=== PATIENT | male | born 1980 | race Caucasian/White ===

== ENCOUNTER 2017-06-14 23:52 | Inpatient (IN) | payer MEDICAID ==
[~2017-06-14] VITALS: Ht 182.9 cm; Wt 87.5 kg
[2017-06-14 23:56] VITALS: BP_SYST 151
[2017-06-15 00:32] LABS: HEMATOCRIT 44.2 % (36-54); MEAN CORPUSCULAR HEMOGLOBIN 32 pg (27-31); MEAN CORPUSCULAR HGB CONC 34 % (32-36); MEAN CORPUSCULAR VOLUME 93 fL (79.0-98.0); PLATELET COUNT (AUTO) 197 K/uL (130-430); RED BLOOD CELL COUNT(AUTO) 4.75 MIL/uL (4.2-6.2); RED CELL DISTRIBUTION WIDTH 12.5 % (9.0-15.0); WHITE BLOOD COUNT (AUTO) 8.7 K/uL (4.8-10.8)
[2017-06-15 00:35] LABS: CALCIUM 8.1 mg/dL (8.4-11.0); CREATININE 1.05 mg/dL (0.55-1.30); POTASSIUM 4.3 mmol/L (3.5-5.1)
[2017-06-15 00:39] LABS: ALBUMIN 4.1 g/dL (3.4-4.8); TOTAL BILIRUBIN 0.4 mg/dL (0.0-1.0)
[2017-06-15 00:50] LABS: BILIRUBIN,URINE NEGATIVE (NEGATIVE); BLOOD, URINE NEGATIVE (NEGATIVE); CLARITY/URINE SLIGHTLY HAZY (CLEAR); COLOR,URINE YELLOW (YELLOW); GLUCOSE,URINE NEGATIVE (NEGATIVE); KETONES,URINE NEGATIVE (NEGATIVE); LEUKOCYTE ESTERASE ,URINE NEGATIVE (NEGATIVE); NITRITE, URINE NEGATIVE (NEGATIVE); PH,URINE 7.5 (5.0-8.0); PROTEIN URINE NEGATIVE (NEGATIVE)
[2017-06-15 00:53] LABS: BACTERIA,URINE MODERATE /HPF (None Seen); MUCUS,URINE None Seen /LPF (None Seen); RBC,URINE 0-3 /HPF (0-3); URINE AMORPHOUS PHOSPHATES 1+ /HPF (None Seen)
[2017-06-15 01:01] LABS: BAND % (MANUAL) 8 % (0-6); BASOPHILS % (MANUAL) 0 % (0-2); EOSINOPHILS % (MANUAL) 3 % (0-7); LYMPHOCYTES % (MANUAL) 19 % (20-46); MONOCYTES % (MANUAL) 7 % (0-11)
[2017-06-15] MEDS ORDERED: AMPICILLIN SODIUM/SULBACTAM NA 3 GM VIAL IM ONE (01:30)
[2017-06-15] MEDS ORDERED: HYDROmorphone 1 MG INJ. 1 MG/ML AMPUL IVP ONE (01:30)
[2017-06-15] MEDS ORDERED: ONDANSETRON HCL 4 MG/2 ML VIAL IVP ONE (01:30)
[2017-06-15] MEDS ORDERED: NACL 0.9% 1,000 ML IV ONE (01:30)
[2017-06-15] MEDS ORDERED: ZOLPIDEM TARTRATE 5 MG TABLET PO PRN (01:45)
[2017-06-15] MEDS ORDERED: ONDANSETRON HCL 4 MG/2 ML VIAL IVP PRN ×3 (01:45→15:15)
[2017-06-15] MEDS ORDERED: POTASSIUM CHLORIDE 20 MEQ TAB.PRT.SR PO PRN (01:45)
[2017-06-15] MEDS ORDERED: HYDROcodone/ACETAMIN 10-325 MG TAB PO PRN (01:45)
[2017-06-15] MEDS ORDERED: BISACODYL 10 MG/SUPPOSITORY RC PRN (01:45)
[2017-06-15] MEDS ORDERED: AMPICILLIN SODIUM/SULBACTAM NA 3 GM VIAL ONE (01:45)
[2017-06-15] MEDS ORDERED: LORazepam 2 MG/ML VIAL IVP PRN (01:45)
[2017-06-15] MEDS ORDERED: AMPICILLIN SODIUM/SULBACTAM NA 3 GM in NS 100 ML IV ONE (01:45)
[2017-06-15] MEDS ORDERED: ACETAMINOPHEN 325 MG TABLET PO PRN (01:45)
[2017-06-15 02:03] VITALS: BP_SYST 141
[2017-06-15] MEDS: NACL 0.9% 1,000 ML IV SCH ×3 (02:31→21:40)
[2017-06-15 04:33] VITALS: BP_SYST 141
[2017-06-15] MEDS ORDERED: PIPERACILLIN/TAZOBACTAM 3.375 GM/VIAL (ZOSYN) IV ONE (04:54)
[2017-06-15] MEDS: MORPHINE 2 MG/ML INJ. SYRINGE IVP PRN ×4 (04:59→23:37)
[2017-06-15] MEDS: PIPERACILLIN/TAZO 3.375 GM in NS 50 ML IV SCH ×4 (05:19→23:35)
[2017-06-15 06:25] LABS: FREE T4 (FREE THYROXINE) 0.8 ng/dL (0.6-1.6); PHOSPHORUS 5.4 mg/dL (2.7-4.5); THYROID STIMULATING HORMONE 3.33 uIu/mL (0.34-4.82)
[2017-06-15 08:00] VITALS: BP_SYST 105
[2017-06-15] MEDS: DOCUSATE SODIUM 100 MG CAPSULE PO SCH ×2 (08:26→21:00)
[2017-06-15 13:04] VITALS: BP_SYST 109
[2017-06-15] MEDS ORDERED: METOCLOPRAMIDE HCL 10 MG/2 ML VIAL IVP ONE (13:57)
[2017-06-15] MEDS ORDERED: PROPOFOL 200MG/ 20ML VIAL (DIPRIVAN) IV ONE (13:57)
[2017-06-15] MEDS ORDERED: LR 1,000 ML IV.SOLN IV ONE (13:57)
[2017-06-15] MEDS ORDERED: SEVOFLURANE 15 MIN GAS INH ONE (13:57)
[2017-06-15] MEDS ORDERED: BUPIVACAINE /EPINEPHRINE/PF 0.25% 30 ML VIAL INJ ONE (13:57)
[2017-06-15] MEDS ORDERED: NS 1000 ML BAG IV ONE (13:57)
[2017-06-15] MEDS ORDERED: KETOROLAC TROMETHAMINE 30 MG VIAL IVP ONE (13:57)
[2017-06-15] MEDS ORDERED: SUCCINYLCHOLINE CHLORIDE 20 MG/ML(QUELICIN) IVP ONE (13:57)
[2017-06-15] MEDS ORDERED: NS IRRIG SOLN 1000 ML IR ONE (13:57)
[2017-06-15] MEDS ORDERED: fentaNYL CITRATE/PF 100 MCG/2 ML AMP IVP ONE (13:57)
[2017-06-15] MEDS ORDERED: LR 1,000 ML IV ONE (15:10)
[2017-06-15] MEDS ORDERED: ePHEDrine sulfate 50 MG/ML VIAL IVP PRN (15:15)
[2017-06-15] MEDS ORDERED: NALOXONE HCL 0.4 MG/ML AMP (NARCAN) IVP PRN (15:15)
[2017-06-15] MEDS ORDERED: fentaNYL CITRATE/PF 100 MCG/2 ML AMP IVP PRN (15:15)
[2017-06-15] MEDS ORDERED: NALBUPHINE HCL 10 MG/ML AMP IVP PRN (15:15)
[2017-06-15] MEDS ORDERED: DIPHENHYDRAMINE INJ 50 MG/ML VIAL IVP PRN (15:15)
[2017-06-15] MEDS ORDERED: fentaNYL CITRATE/PF 100 MCG/2 ML AMP ONE (16:11)
[2017-06-15 16:56] VITALS: BP_SYST 114
[2017-06-15 20:00] VITALS: BP_SYST 124
[2017-06-15] MEDS: CALCIUM CARBONATE/VITAMIN D3 1 TAB TABLET PO SCH (21:00)
[2017-06-16] VITALS (8 sets, daily range): BP systolic 112–127
[2017-06-16] MEDS: NACL 0.9% 1,000 ML IV SCH ×3 (03:31→18:08)
[2017-06-16 06:07] LABS: HEMOGLOBIN A1C 5.2 % (4.8-5.6)
[2017-06-16] MEDS: PIPERACILLIN/TAZO 3.375 GM in NS 50 ML IV SCH ×3 (06:07→18:05)
[2017-06-16 06:26] LABS: BASOPHILS % (AUTO) 0.1 % (0.0-2.0); EOSINOPHILS % (AUTO) 0.4 % (0.0-4.0); HEMATOCRIT 36.6 % (36-54); HEMOGLOBIN 12.4 g/dL (14.0-18.0); LYMPHOCYTES # (AUTO) 0.8 K/uL (1.0-5.5); LYMPHOCYTES % (AUTO) 10.7 % (20.5-51.5); MEAN CORPUSCULAR HEMOGLOBIN 32 pg (27-31); MEAN CORPUSCULAR HGB CONC 34 % (32-36); MEAN CORPUSCULAR VOLUME 93 fL (79.0-98.0); MONOCYTES # (AUTO) 0.5 K/uL (0.0-1.0); MONOCYTES % (AUTO) 6.3 % (1.7-9.3); NEUTROPHILS # (AUTO) 6.3 K/uL (1.8-7.7); NEUTROPHILS % (AUTO) 82.5 % (40.0-70.0); PLATELET COUNT (AUTO) 152 K/uL (130-430); RED BLOOD CELL COUNT(AUTO) 3.93 MIL/uL (4.2-6.2); RED CELL DISTRIBUTION WIDTH 12.6 % (9.0-15.0); WHITE BLOOD COUNT (AUTO) 7.6 K/uL (4.8-10.8)
[2017-06-16 06:33] LABS: CALCIUM 7.6 mg/dL (8.4-11.0); CREATININE 1.25 mg/dL (0.55-1.30)
[2017-06-16 08:06] LABS: T4 (THYROXINE) 6.7 ug/dL (4.5-12.0)
[2017-06-16] MEDS: MORPHINE 2 MG/ML INJ. SYRINGE IVP PRN ×3 (08:09→17:00)
[2017-06-16] MEDS: CALCIUM CARBONATE/VITAMIN D3 1 TAB TABLET PO SCH ×2 (08:33→22:05)
[2017-06-16] MEDS: MULTIVITAMINS TAB 1 TABLET PO SCH (08:33)
[2017-06-16] MEDS: DOCUSATE SODIUM 100 MG CAPSULE PO SCH ×2 (08:33→22:05)
[2017-06-16] MEDS: SIMETHICONE 80 MG TAB.CHEW PO PRN (22:05)
[2017-06-17] VITALS: BP_SYST 112
[2017-06-17] MEDS: PIPERACILLIN/TAZO 3.375 GM in NS 50 ML IV SCH ×2 (00:03→06:39)
[2017-06-17] MEDS: MORPHINE 2 MG/ML INJ. SYRINGE IVP PRN ×2 (00:03→08:11)
[2017-06-17 03:30] VITALS: BP_SYST 113
[2017-06-17] MEDS: NACL 0.9% 1,000 ML IV SCH ×2 (06:40→06:54)
[2017-06-17 06:55] LABS: BASOPHILS % (AUTO) 0.1 % (0.0-2.0); EOSINOPHILS # (AUTO) 0.1 K/uL (0.0-0.4); EOSINOPHILS % (AUTO) 2.1 % (0.0-4.0); HEMATOCRIT 36.9 % (36-54); HEMOGLOBIN 12.2 g/dL (14.0-18.0); LYMPHOCYTES # (AUTO) 1.1 K/uL (1.0-5.5); LYMPHOCYTES % (AUTO) 18.2 % (20.5-51.5); MEAN CORPUSCULAR HEMOGLOBIN 31 pg (27-31); MEAN CORPUSCULAR HGB CONC 33 % (32-36); MEAN CORPUSCULAR VOLUME 94 fL (79.0-98.0); MONOCYTES # (AUTO) 0.5 K/uL (0.0-1.0); MONOCYTES % (AUTO) 8.6 % (1.7-9.3); NEUTROPHILS # (AUTO) 4.6 K/uL (1.8-7.7); PLATELET COUNT (AUTO) 153 K/uL (130-430); RED BLOOD CELL COUNT(AUTO) 3.92 MIL/uL (4.2-6.2); RED CELL DISTRIBUTION WIDTH 12.7 % (9.0-15.0); WHITE BLOOD COUNT (AUTO) 6.3 K/uL (4.8-10.8)
[2017-06-17] MEDS: SIMETHICONE 80 MG TAB.CHEW PO PRN (08:00)
[2017-06-17] MEDS: MULTIVITAMINS TAB 1 TABLET PO SCH (08:08)
[2017-06-17] MEDS: CALCIUM CARBONATE/VITAMIN D3 1 TAB TABLET PO SCH (08:08)
[2017-06-17] MEDS: DOCUSATE SODIUM 100 MG CAPSULE PO SCH (08:08)
[2017-06-17 08:18] VITALS: BP_SYST 123
[2017-06-17] MEDS ORDERED: LEVO500T20 PO (08:36)
[2017-06-17] MEDS ORDERED: METR500T PO (08:36)
[2017-06-17 10:58] VITALS: BP_SYST 123
== END 2017-06-17 11:40 | disposition home or self-care (01) | DRG 223 ==
LOC: SED 23:52 → STU 06-15 01:38 → SMU 06-15 01:48
PROVIDERS: ADMIT Family Medicine; ATTEND Family Medicine
PROC: 0DJD4ZZ Inspection of Lower Intestinal Tract, Percutaneous Endoscopic Approach (ICD-10-PCS; 2017-06-15)
PROC: 0DTJ0ZZ Resection of Appendix, Open Approach (ICD-10-PCS; principal; 2017-06-15 14:30)
DX: K35.80 Unspecified acute appendicitis (principal); E83.51 Hypocalcemia; K21.9 Gastro-esophageal reflux disease without esophagitis; F17.210 Nicotine dependence, cigarettes, uncomplicated; Z53.31 Laparoscopic surgical procedure converted to open procedure
CPT/HCPCS: 36415; 71010; 80048; 80053; 80061; 81000-TC; 82150-TC; 83036; 83690-TC; 83735-TC; 83880; 84100-TC; 84436; 84439; 84443-TC; 84479; 85007; 85025; 85027; 87070; 87070-TC; 87075-TC; 87081; 87086; 87186-TC; 88304; 94010; 96365; 96375; 99285; C1727; J0295; J0330; J1170; J1885; J2270; J2405; J2543; J2704; J2765; J3010; J3490; J7030; J7060; J7120

== ENCOUNTER 2018-03-14 12:50 | Emergency (ER) | payer MEDICAID ==
[~2018-03-14] VITALS: Ht 182.9 cm; Wt 81.6 kg
[~2018-03-14 12:50] MED LIST: LEVO500T20 PO; METR500T PO
[2018-03-14 12:57] VITALS: BP_SYST 131
--- NOTE | 2018-03-14 13:00 | NUR ---
Placed in room 3. To gown for exam. Side rails up.
[2018-03-14] MEDS ORDERED: LIDOCAINE 2%, 20 ML MDV INJ ONE (13:15)
[2018-03-14] MEDS ORDERED: CEPHALEXIN 500 MG CAPSULE PO ONE (13:15)
[2018-03-14] MEDS ORDERED: SULFAMETHOXAZOLE/TRIMETHOPR DS 1 TABLET PO ONE (13:15)
[2018-03-14] MEDS ORDERED: DIPH-TET-PERTUS Vaccine 0.5 ML VIAL (ADACEL) I.M. ONE (13:15)
[2018-03-14] MEDS ORDERED: IBUPROFEN 800 MG TABLET PO ONE (13:15)
--- NOTE | 2018-03-14 13:20 | NUR ---
Pt presents to ER to have wound on R side of face checked. Wound on pt's face is swollen and small amound of pus leaking from center. Pt reports pain level 4/10 and states wound developed 2-3 days ago. Pt in no acute distress, speaking full sentences, AOX4, ambulatory.
--- NOTE | 2018-03-14 13:25 | NUR ---
Alexa Rivero [employer] PROFESSOR at bedside examining pt.
--- NOTE | 2018-03-14 13:55 | NUR ---
Alexa Rivero [employer] OPERATOR at bedside performing I&D on pt's wound to R side of face. Pt tolerating well; will continue to monitor.
--- NOTE | 2018-03-14 14:07 | NUR ---
Pt medicated as ordered by Alexa Rivero NP, pt tolerated well; will continue to monitor.
[2018-03-14 14:40] VITALS: BP_SYST 131
--- NOTE | 2018-03-14 14:40 | NUR ---
Patient given written and verbal discharge instructions and verbalizes understanding. ER MD discussed with patient the results and treatment provided. Patient in stable condition. ID arm band removed. Rx of Keflex, Motrin, Mupirocin, and Bactrim given. Patient educated on pain management and to follow up with PMD. Pain Scale 0/10. Opportunity for questions provided and answered. Medication side effect fact sheet provided.
== END 2018-03-14 14:40 | disposition home or self-care (01) ==
LOC: SED 12:50
DX: L02.01 Cutaneous abscess of face (principal); R03.0 Elevated blood-pressure reading, without diagnosis of hypertension; F17.210 Nicotine dependence, cigarettes, uncomplicated; Z76.1 Encounter for health supervision and care of foundling
CPT/HCPCS: 10060; 99284; J2001; 90715

== ENCOUNTER 2018-03-17 09:45 | Emergency (ER) | payer MEDICAID ==
[~2018-03-17] VITALS: Ht 182.9 cm; Wt 81.6 kg
[2018-03-17 09:45] VITALS: BP_SYST 128
[2018-03-17 10:05] VITALS: BP_SYST 128
== END 2018-03-17 10:05 | disposition home or self-care (01) ==
LOC: SED 09:45
DX: Z48.00 Encounter for change or removal of nonsurgical wound dressing (principal)
CPT/HCPCS: 99281

== ENCOUNTER 2018-08-06 20:52 | Emergency (ER) | payer MEDICAID ==
[~2018-08-06] VITALS: Ht 182.9 cm; Wt 79.4 kg
[2018-08-06 21:20] VITALS: BP_SYST 135
== END 2018-08-06 21:35 | disposition left against medical advice (07) ==
LOC: SED 20:52
DX: R20.2 Paresthesia of skin (principal); Z53.21 Procedure and treatment not carried out due to patient leaving prior to being seen by health care provider

== ENCOUNTER 2018-09-30 19:15 | Emergency (ER) | payer MEDICAID ==
[~2018-09-30] VITALS: Ht 182.9 cm; Wt 77.1 kg
[2018-09-30 19:15] VITALS: BP_SYST 129
[2018-09-30 19:20] VITALS: BP_SYST 129
== END 2018-09-30 19:22 ==
LOC: SED 19:15
DX: Z02.89 Encounter for other administrative examinations (principal); R03.0 Elevated blood-pressure reading, without diagnosis of hypertension
CPT/HCPCS: 99283

== ENCOUNTER 2020-01-12 22:33 | Emergency (ER) | payer MEDICAID ==
[~2020-01-12] VITALS: Ht 182.9 cm; Wt 72.6 kg
[2020-01-12 22:35] VITALS: BP_SYST 122
--- NOTE | 2020-01-12 22:35 | NUR ---
Patient to ER bed 4 to gown for evaluation. Side rails up. ASSUMED CARE OF PT.
--- NOTE | 2020-01-12 22:35 | NUR ---
PT AAO AND AMBULATORY C/O SCROTUM PAIN THAT STARTED YESTERDAY AND BECAME WORSE TODAY. PT REPORTS SWELLING AND DIFFICULTY URINATING D/T PAIN.
[2020-01-12 23:18] LABS: BILIRUBIN,URINE 1+ (NEGATIVE); BLOOD, URINE 1+ (NEGATIVE); CLARITY/URINE CLEAR (CLEAR); COLOR,URINE YELLOW (YELLOW); GLUCOSE,URINE NEGATIVE (NEGATIVE); KETONES,URINE NEGATIVE (NEGATIVE); LEUKOCYTE ESTERASE ,URINE 1+ (NEGATIVE); NITRITE, URINE NEGATIVE (NEGATIVE); PROTEIN URINE 2+ (NEGATIVE)
--- NOTE | 2020-01-12 23:18 | NUR ---
ER Dr. HURST at bedside examining patient.
[2020-01-12 23:20] LABS: BACTERIA,URINE MODERATE /HPF (None Seen); WBC,URINE >100 /HPF (0-3)
[2020-01-12] MEDS ORDERED: KETOROLAC TROMETHAMINE 30 MG VIAL IM ONE (23:30)
[2020-01-12] MEDS ORDERED: AZITHROMYCIN 250 MG TABLET PO ONE (23:30)
[2020-01-12] MEDS ORDERED: HYDROcodone/ACETAMIN 5-325 MG TAB (NORCO/ VICODIN) PO ONE (23:30)
[2020-01-12] MEDS ORDERED: cefTRIAXone 250 MG in LIDOCAINE 1%, 20 ML MDV 0.9 ML IM ONE (23:30)
[2020-01-12] MEDS ORDERED: ONDANSETRON 4 MG ODT TAB PO ONE (23:30)
[2020-01-13 01:05] VITALS: BP_SYST 119
--- NOTE | 2020-01-13 01:05 | NUR ---
Patient given written and verbal discharge instructions and verbalizes understanding. ER MD discussed with patient the results and treatment provided. Patient in stable condition. ID arm band removed. Rx of NAPROSYN AND DOXYCYCLINE given. Patient educated on pain management and to follow up with PMD. Pain Scale 6/10. Opportunity for questions provided and answered. Medication side effect fact sheet provided.
[2020-01-16 16:28] LABS: NEISSERIA GONORRHOEAE NAA Negative (Negative)
[2020-01-16 18:04] LABS: CHLAMYDIA TRACHOMATIS NAA Positive (Negative)
--- NOTE | 2020-01-16 19:16 | NUR ---
Pt notified about positive result for Chlamydia C Trachomatis, pt given antibiotics prior discharge on 01/12/20 , Dr Schwartz awared, pt educated about results and awared to notify partner, pt verbalized understanding .
== END 2020-01-13 01:05 | disposition home or self-care (01) ==
LOC: SED 22:33
DX: N45.1 Epididymitis (principal); F15.90 Other stimulant use, unspecified, uncomplicated
CPT/HCPCS: 76870; 81000; 87086; 87491; 87591; 96372; 99284; J0696; J1885; J2001; Q0144; Q0162

== ENCOUNTER 2020-10-15 10:44 | Emergency (ER) | payer MEDICAID ==
[~2020-10-15] VITALS: Ht 182.9 cm; Wt 77.1 kg
[2020-10-15 11:05] VITALS: BP_SYST 155
[2020-10-15] MEDS ORDERED: FAMOTIDINE PF 20 MG/2 ML VIAL IVP ONE (12:15)
[2020-10-15] MEDS ORDERED: NACL 0.9% 1,000 ML IV ONE (12:15)
[2020-10-15] MEDS ORDERED: MAG-AL HYDROX/SIMETH 30 ML UDC PO ONE (12:15)
[2020-10-15 12:26] LABS: BASOPHILS % (AUTO) 0.9 % (0.0-2.0); EOSINOPHILS # (AUTO) 0.2 K/uL (0.0-0.4); EOSINOPHILS % (AUTO) 3.6 % (0.0-4.0); HEMOGLOBIN 15.2 g/dL (14.0-18.0); LYMPHOCYTES # (AUTO) 1.3 K/uL (1.0-5.5); LYMPHOCYTES % (AUTO) 25.5 % (20.5-51.5); MEAN CORPUSCULAR HEMOGLOBIN 31 pg (27-31); MEAN CORPUSCULAR HGB CONC 33 % (32-36); MEAN CORPUSCULAR VOLUME 94 fL (79.0-98.0); MONOCYTES # (AUTO) 0.4 K/uL (0.0-1.0); MONOCYTES % (AUTO) 7.2 % (1.7-9.3); NEUTROPHILS # (AUTO) 3.2 K/uL (1.8-7.7); NEUTROPHILS % (AUTO) 62.8 % (40.0-70.0); PLATELET COUNT (AUTO) 206 K/uL (130-430); RED BLOOD CELL COUNT(AUTO) 4.92 MIL/uL (4.2-6.2); RED CELL DISTRIBUTION WIDTH 13.2 % (9.0-15.0); WHITE BLOOD COUNT (AUTO) 5.1 K/uL (4.8-10.8)
[2020-10-15 12:34] LABS: CALCIUM 8.8 mg/dL (8.4-11.0); CREATININE 1.11 mg/dL (0.55-1.30); POTASSIUM 3.7 mmol/L (3.5-5.1)
[2020-10-15 12:40] LABS: ALBUMIN 4.1 g/dL (3.4-4.8); TOTAL BILIRUBIN 0.4 mg/dL (0.0-1.0)
[2020-10-15 13:48] VITALS: BP_SYST 155
[2020-10-15] MEDS ORDERED: PRO40 PO (21:08)
== END 2020-10-15 13:49 | disposition home or self-care (01) ==
LOC: SED 10:44
DX: R10.13 Epigastric pain (principal); F17.200 Nicotine dependence, unspecified, uncomplicated
CPT/HCPCS: 36415; 80053; 83690; 85025; 96361; 96374; 99283; J3490; J7030

== ENCOUNTER 2020-10-15 18:28 | Emergency (ER) | payer MEDICAID ==
[~2020-10-15] VITALS: Ht 182.9 cm; Wt 77.1 kg
[2020-10-15 18:43] VITALS: BP_SYST 133
[2020-10-15] MEDS ORDERED: NACL 0.9% 1,000 ML IV ONE (19:30)
[2020-10-15] MEDS ORDERED: PANTOPRAZOLE SODIUM 40 MG/VIAL (PROTONIX) IVP ONE (19:30)
[2020-10-15] MEDS ORDERED: MAG-AL HYDROX/SIMETH 30 ML UDC PO ONE (19:30)
[2020-10-15] MEDS ORDERED: MAG-AL HYDROX/SIMETH 30 ML UDC ONE (19:53)
[2020-10-15] MEDS ORDERED: PRO40 PO (21:08)
[2020-10-15] MEDS ORDERED: MAGNESIUM CITRATE 300 ML ORAL SOLUTION ONE (21:10)
[2020-10-15] MEDS ORDERED: MAGNESIUM CITRATE 300 ML ORAL SOLUTION PO ONE (21:15)
[2020-10-15 21:20] VITALS: BP_SYST 137
== END 2020-10-15 21:20 | disposition home or self-care (01) ==
LOC: SED 18:28
DX: K29.70 Gastritis, unspecified, without bleeding (principal); Z79.899 Other long term (current) drug therapy
CPT/HCPCS: 96361; 96374; 99283; C9113; J7030

== ENCOUNTER 2021-01-26 19:00 | Emergency (ER) | payer MEDICAID ==
[~2021-01-26] VITALS: Ht 185.4 cm; Wt 77.1 kg
[2021-01-26 19:00] VITALS: BP_SYST 126
[~2021-01-26 19:00] MED LIST changes: +PRO40 PO
[2021-01-26] MEDS ORDERED: LIDOCAINE/EPI 1% 1:100000 20 ML VIAL INJ ONE (19:20)
[2021-01-26 19:22] VITALS: BP_SYST 126
== END 2021-01-26 19:22 | disposition left against medical advice (07) ==
LOC: SED 19:00
DX: S11.94XA Puncture wound with foreign body of unspecified part of neck, initial encounter (principal); Z79.899 Other long term (current) drug therapy; W34.010A Accidental discharge of airgun, initial encounter; Y93.89 Activity, other specified; Y92.89 Other specified places as the place of occurrence of the external cause; Y99.8 Other external cause status
CPT/HCPCS: 99281